=== PATIENT | male | born 1990 | race African-American/Black ===

== ENCOUNTER 2017-11-28 17:16 | Emergency (ER) | payer SELFPAY ==
[2017-11-28 17:22] VITALS: BP 132/82
--- NOTE | 2017-11-28 18:16 | ER Document Report ---
HPI - HPI Patient complains to provider of: right upper tooth pain Onset: Other - ew days Onset/Duration: Gradual Pain Level: 4 Context: 27 yo male had tooth pulled before moveing here. Ran out of motrin, has pain. no fever or swelling. Associated Symptoms: None Exacerbated by: Other - chewing Relieved by: Denies - ROS ROS below otherwise negative: Yes Systems Reviewed and Negative: Yes All other systems reviewed and negative Past Medical History - General Information source: Patient - Social History Smoking Status: Current Every Day Smoker Frequency of alcohol use: None Drug Abuse: None Lives with: Family Family History: None - Medical History Medical History: Negative Surgical Hx: Negative Vertical Provider Document - CONSTITUTIONAL Agree With Documented VS: Yes Exam Limitations: No Limitations General Appearance: No Apparent Distress - INFECTION CONTROL TRAVEL OUTSIDE OF THE [place] IN LAST 30 DAYS: No - HEENT Notes: extraction site upper and lower right site, healing well, no abscess, infalmed gingiva - NECK Neck: Supple. negative: Lymphadenopathy-Left, Lymphadenopathy-Right - NEURO Level of Consciousness: Alert Course - Vital Signs Vital signs: Temp Pulse Resp BP Pulse Ox 99.2 F 87 14 132/82 H 96 11/28/17 17:20 11/28/17 17:20 11/28/17 17:20 11/28/17 17:20 11/28/17 17:20 Discharge - Discharge Clinical Impression: Dental pain and decay Condition: Good Disposition: HOME, SELF-CARE Instructions: Acetaminophen, [facility], Dentist, Ibuprofen ( General) ([facility]), Penicillin V K ([facility]), Toothache ([facility]), Topical Lidocaine ([facility]) Additional Instructions: See the dentist Take the antibiotics Tylenol up to 4000 mg per day for pain Motrin 3 times a day for pain Lidocaine to numb the area Prescriptions: Ibuprofen [Motrin 600 mg Tablet] 600 mg PO Q8HP PRN #30 tablet PRN Reason: Penicillin V Potassium [Penicillin Vk 500 mg Tablet] 500 mg PO QID #40 tablet
[2017-11-28] MEDS ORDERED: ACETAMINOPHEN 325 MG TABLET PO ONE (19:26)
[2017-11-28] MEDS ORDERED: LIDOCAINE 2% VISCOUS SOLN 20 ML UDCUP PO ONE (19:26)
[2017-11-28] MEDS ORDERED: PENICILLIN V POTASSIUM 500 MG TABLET PO ONE (19:26)
[2017-11-28] MEDS ORDERED: IBUPROFEN 400 MG TABLET PO ONE (19:26)
== END 2017-11-28 19:49 | disposition home or self-care (01) ==
LOC: ER 17:16
DX: K02.9 Dental caries, unspecified (principal); K08.89 Other specified disorders of teeth and supporting structures; F17.200 Nicotine dependence, unspecified, uncomplicated; Z98.890 Other specified postprocedural states
CPT/HCPCS: 99282; J3490 ×2

== ENCOUNTER 2017-12-20 20:38 | Emergency (ER) | payer OTHER, MEDICAID ==
[2017-12-20 20:49] VITALS: BP 139/91
[2017-12-20] MEDS ORDERED: PREDNISONE 20 MG TABLET PO ONE (20:58)
--- NOTE | 2017-12-20 21:00 | ER Document Report ---
HPI - HPI Patient complains to provider of: skin rash Onset: This morning Onset/Duration: Gradual Pain Level: 2 Context: Patient complains of pruritic skin rash to his exposed areas of the bilateral upper and lower extremities that he noticed today. Patient does report recently working out in the yard last week and is concerned about possible poison vidal. Associated Symptoms: Other - Skin rash. denies: Fever Exacerbated by: Denies Relieved by: Denies Similar symptoms previously: No Recently seen / treated by doctor: No - ROS ROS below otherwise negative: Yes Systems Reviewed and Negative: Yes All other systems reviewed and negative - CONSTITUTIONAL Constitutional: DENIES: Fever, Chills - GASTROINTESTINAL Gastrointestinal: DENIES: Nausea, Patient vomiting - DERM Skin Color: Normal Skin Problems: Rash Past Medical History - General Information source: Patient - Social History Smoking Status: Current Every Day Smoker Smoking Education Provided: Yes Frequency of alcohol use: None Drug Abuse: None Occupation: None Family History: None Patient has suicidal ideation: No Patient has homicidal ideation: No - Past Medical History Cardiac Medical History: Reports: Hx Hypertension Renal/ Medical History: Denies: Hx Peritoneal Dialysis Surgical Hx: Negative Vertical Provider Document - CONSTITUTIONAL Agree With Documented VS: Yes Exam Limitations: No Limitations General Appearance: WD/WN, No Apparent Distress - INFECTION CONTROL TRAVEL OUTSIDE OF THE [place] IN LAST 30 DAYS: No - HEENT HEENT: Atraumatic, Normal ENT Exam, Normocephalic - NECK Neck: Normal Inspection, Supple. negative: Lymphadenopathy-Left, Lymphadenopathy-Right - RESPIRATORY Respiratory: Breath Sounds Normal, No Respiratory Distress - CARDIOVASCULAR Cardiovascular: Regular Rate, Regular Rhythm - BACK Back: Normal Inspection - MUSCULOSKELETAL/EXTREMETIES Musculoskeletal/Extremeties: RIN ZAMUDIO - NEURO Level of Consciousness: Awake, Alert, Appropriate Motor/Sensory: No Motor Deficit - DERM Integumentary: Warm, Dry, Rash - Scattered discrete papular lesion to bilateral upper and lower extremities. Course - Re-evaluation Re-evalutation: 12/20/17 21:02 Patient with scattered papular lesions to exposed areas of bilateral upper and lower extremities. Lesions are not vesicular in nature. No scaling noted. Will treat for contact dermatitis at this time. Good return precautions given. Patient encouraged to follow-up with a primary care provider for recheck. - Vital Signs Vital signs: Temp Pulse Resp BP Pulse Ox 98.3 F 76 18 139/91 H 99 12/20/17 20:45 12/20/17 20:45 12/20/17 20:45 12/20/17 20:45 12/20/17 20:45 Discharge - Discharge Clinical Impression: Skin rash Condition: Stable Disposition: HOME, SELF-CARE Instructions: Contact Dermatitis ([facility]), Steroid Medication Additional Instructions: Return immediately for any new or worsening symptoms Followup with your primary care provider, call tomorrow to make a followup appointment Prescriptions: Hydroxyzine HCl [Atarax 25 mg Tablet] 1 - 2 tab PO QID #15 tablet Prednisone [Deltasone 10 mg Tablet] 10 mg PO ASDIR PRN #21 tablet PRN Reason: Forms: Smoking Cessation Education Referrals: [facility] [Provider Group] - Follow up as needed [facility] [Provider Group] - Follow up as needed
== END 2017-12-20 21:05 | disposition home or self-care (01) ==
LOC: ER 20:38
DX: L25.9 Unspecified contact dermatitis, unspecified cause (principal); F17.200 Nicotine dependence, unspecified, uncomplicated; I10 Essential (primary) hypertension
CPT/HCPCS: 99282; J7512

== ENCOUNTER 2018-04-07 20:25 | Emergency (ER) | payer MEDICAID, OTHER ==
[2018-04-07 20:44] VITALS: BP 137/78
--- NOTE | 2018-04-07 22:15 | ER Document Report ---
HPI - HPI Patient complains to provider of: Sore throat sore throat Time Seen by Provider: 04/07/18 21:43 Onset: Last week Onset/Duration: Gradual Severity: Mild Pain Level: 3 Context: 27-year-old male with hypertension presents to the emergency department for sore throat that started 9 days ago and complains of swelling in his throat. 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 He called out of work yesterday because he was not feeling well and took DayQuil and halls without any improvement of symptoms. He does endorse cough and sneezing and when that happens it hurts his back in the thoracic area characterized as a stinging pain. He denies headache, ear pain, nausea, vomiting, diarrhea, abdominal pain. He endorses sore throat and periodic sneezing. - CONSTITUTIONAL Constitutional: REPORTS: Chills. DENIES: Fever - EENT EENT: REPORTS: Sore Throat. DENIES: Ear Pain, Eye problems - RESPIRATORY Respiratory: REPORTS: Coughing Past Medical History - General Information source: Patient - Social History Smoking Status: Current Every Day Smoker Cigarette use (# per day): Yes - 10 Frequency of alcohol use: None Drug Abuse: None Family History: None Patient has suicidal ideation: No Patient has homicidal ideation: No - Past Medical History Cardiac Medical History: Reports: Hx Hypertension Renal/ Medical History: Denies: Hx Peritoneal Dialysis Vertical Provider Document - CONSTITUTIONAL Agree With Documented VS: Yes Exam Limitations: No Limitations Notes: Reviewed vital signs and nursing note as charted by RN. CONSTITUTIONAL: Well-appearing, well-nourished, acting appropriately for age HEAD: Normocephalic, atraumatic, no swelling EYES: PERRL, Conjunctivae clear, no drainage, EOMI, no scleral icterus ENT: External ears without lesions, External auditory canal is patent, TMs without erythema, landmarks clear and well visualized, no rhinorrhea, Pharynx without erythema or lesions, no tonsillar hypertrophy, airway patent, mucous membranes pink and moist NECK: Supple, mild submandibular lymphadenopathy, no masses CARD: Regular rate and rhythm, no murmurs, no rubs, no gallops, capillary refill < 2 seconds, symmetric pulses RESP: The lungs are clear to auscultation bilaterally, no wheezing, no rales, no rhonchi. Respiratory rate and effort are normal, normal chest excursion. No respiratory distress, no retractions, no stridor, no nasal flaring, no accessory muscle use. Reproducible pain on inspiration ABD/GI: Normal bowel sounds, non-distended, soft, non-tender, no rebound, no guarding, no palpable organomegaly EXT: Normal ROM in all joints, non-tender to palpation, no effusions, no edema SKIN: Normal color for age and race, warm, dry, good turgor, no acute lesions noted NEURO: No facial asymmetry, moves all extremities equally, motor and sensory function intact - INFECTION CONTROL TRAVEL OUTSIDE OF THE [place] IN LAST 30 DAYS: No Course - Re-evaluation Re-evalutation: 04/07/18 22:13 Otherwise healthy 27-year-old male presents with sore throat times 1 week. He initially thought it was a common cold and tried taking some DayQuil. The pain did get a little bit worse and then he had what sounds like an apneic episode while he was sleeping I feel is unrelated to his chief complaint which brought him into the emergency department. Physical exam is unremarkable. Patient is afebrile, does not have cervical lymphadenopathy, no tonsillar exudate, he does have some mild swelling of the tonsillar pillars without erythema. At this point I strongly believe this is a viral pharyngitis and there is no need to do a rapid strep. I educated the patient to do warm water salt gargles, take Tylenol 1000 mg every 6 hours with Motrin 600 mg every 6 hours for the next couple of days to help with the symptoms. I did tell the patient if he develops a severe stinging sore throat, drools and is unable to swallow, develops a high fever to immediately return to the emergency department. - Vital Signs Vital signs: Temp Pulse Resp BP Pulse Ox 98.0 F 86 20 137/78 H 96 04/07/18 20:41 04/07/18 20:41 04/07/18 20:41 04/07/18 20:41 04/07/18 20:41 Discharge - Discharge Clinical Impression: Viral pharyngitis Condition: Good Disposition: HOME, SELF-CARE Instructions: Acetaminophen, Sore Throat ([facility]) Additional Instructions: You were seen this evening for a sore throat that we believe is viral pharyngitis. Because it is a virus that is most likely causing her symptoms and antibiotics will not work as we discussed. You can do warm salt water gargles a few times a day and to take Motrin 600 mg 4 times a day with Tylenol 1000 mg 4 times [id number] for 2-3 days to help with your symptoms. So, if you are having a cough you can take a nice big teaspoon of honey before bed to help as it acts as a cough suppressant. If it any time he developed a high fever, severe sore throat, start drooling and or unable to swallow immediately return to the emergency department.
== END 2018-04-07 22:35 | disposition home or self-care (01) ==
LOC: ER 20:25
DX: J02.9 Acute pharyngitis, unspecified (principal); B97.89 Other viral agents as the cause of diseases classified elsewhere; R22.1 Localized swelling, mass and lump, neck; F17.210 Nicotine dependence, cigarettes, uncomplicated
CPT/HCPCS: 99283

== ENCOUNTER 2020-05-22 15:05 | Emergency (ER) | payer OTHER, MEDICAID ==
[2020-05-22 15:17] VITALS: BP 130/85
--- NOTE | 2020-05-22 22:36 | EKG REPORT ---
SEVERITY:- NORMAL ECG - SINUS RHYTHM : Confirmed by: Adi Mclean MD 22-May-2020 22:36:04
== END 2020-05-22 15:24 | disposition left against medical advice (07) ==
LOC: ER 15:05
DX: Z53.21 Procedure and treatment not carried out due to patient leaving prior to being seen by health care provider (principal)
CPT/HCPCS: 93005; 93010